=== PATIENT | female | born 1970 | race Caucasian/White ===

== ENCOUNTER → 2016-07-15 | Day surgery (SDC) | payer BC ==
[~2016-07-15] MED LIST: ALEVE220 M1 PO; B12; DOC-Q-LACE100 MG PO; ESTRACE42.5 GM VAG; ESTROGEL50 GM; IBUPROFEN600 MG PO; MYRBETRIQ25 MG PO; NEURONTIN100 MG PO; NO MEDICATIONS; NORFLEX100 M1 PO; PERCOCET5/325 PO; RANITIDINE HCL150 M1 PO; TRAMADOL HCL50 M2 PO; VITAMIN B12 INJECTIO; VOLTAREN75 MG PO
--- NOTE | ~2016-07-15 | OR ---
Unit #: [id number] #: [id number] Patient: LEATHA CLEMENTS [id number] [address] [place], [place] [address] [id number] O MR#: [id number] NAME: LEATHA CLEMENTS. ROOM: Date of Procedure: 07/15/2016 Admission Date: 07/15/2016 Surgeon: Carroll Healy M.D. : 1970 Attending Physician: Carroll Healy M.D. Primary Care Physician: Juan Mike M.D. OPERATIVE REPORT JOB NOTE: VERIFY CC AT THE END PREOPERATIVE DIAGNOSES Low back pain, radiculopathy, and degenerative lumbar disk disease. POSTOPERATIVE DIAGNOSES Low back pain, radiculopathy, and degenerative lumbar disk disease. PROCEDURE PERFORMED Lumbar epidural steroid injection with intravenous sedation under fluoroscopic guidance for needle localization. INDICATIONS FOR PROCEDURE The patient is a 46-year-old female with a several month history of back and bilateral lower extremity pains, more pain on the right and numbness on the left. This started after doing some physical therapy when she was working on her prolapsed bladder. She had no prior problems. Symptoms have not gotten better with the use of anti-inflammatories or therapy aimed at her back and legs. Workup demonstrated degenerative disk disease with loss of disc height and bulging left greater than right at L5-S1 level, mild bulge at L4-L5 level, were within normal limits. Examination is consistent with radiculitis and disc irritation causing her symptoms. Based on history, pathology, symptomatology and response, today plan is for a trial of an epidural steroid injection. DESCRIPTION OF PROCEDURE The patient was placed in a seated position. Standard monitors were applied. Then, 2 mg of Versed were given for sedation and anxiolysis, which were adequate. Vital signs remained stable. Sterile prep and drape then of the lumbar area was performed. The skin at the L5 level was localized with 1% lidocaine. An 18-gauge [employer] needle was then advanced via loss of resistance technique and fluoroscopic guidance in toward the epidural space. After confirming proper positioning with fluoroscopy and radiographic contrast, 80 mg of Depo-Medrol and 4 mL of 0.125% bupivacaine were deposited. The patient tolerated the procedure otherwise well and was discharged to the recovery room in stable condition. Dictated by... Unit #: [id number] #: [id number] Patient: CLEMENTSLEATHA M.D. LHP/av TD: 07/15/2016 13:47 JOB #: [id number] OPERATIVE REPORT Page 1 of 1 X Carroll Healy MD X PROCEDURE OPERATIVE NOTE
== END | disposition home or self-care (01) ==
LOC: CCSC 07:51
DX: M51.16 Intervertebral disc disorders with radiculopathy, lumbar region (principal); M51.17 Intervertebral disc disorders with radiculopathy, lumbosacral region; M47.27 Other spondylosis with radiculopathy, lumbosacral region; I10 Essential (primary) hypertension
CPT/HCPCS: J1040; J2250

== ENCOUNTER → 2016-10-14 | Day surgery (SDC) | payer BC ==
--- NOTE | ~2016-10-14 | OR ---
Unit #: [id number] #: [id number] Patient: LEATHA CLEMENTS [id number] [address] [place], [place] [address] [id number] O MR#: [id number] NAME: LEATHA CLEMENTS ROOM: Date of Procedure: 10/14/2016 Admission Date: 10/14/2016 Surgeon: Carroll Healy M.D. : 1970 Attending Physician: Carroll Healy M.D. Primary Care Physician: Juan Mike M.D. OPERATIVE REPORT JOB NOTE: CC: [facility] PREOPERATIVE DIAGNOSES Back pain, radiculopathy, degenerative lumbar disk disease. POSTOPERATIVE DIAGNOSES Back pain, radiculopathy, degenerative lumbar disk disease. PROCEDURE PERFORMED Lumbar epidural steroid injection with intravenous sedation and fluoroscopic guidance for needle localization. INDICATIONS FOR PROCEDURE The patient is a 46-year-old female, who has had back and bilateral lower extremity pains. She got bad following a surgery last January the [employer] surgery. Following a bladder prolapse, she had a single epidural steroid injection in July and started feel somewhat better, and then had extensive surgery in August, do a full pelvic wall repair requiring lithotomy position for multiple hours. The patient has had back and lower extremity pain since then having been fairly significant, so plan is to repeat an epidural steroid injection. DESCRIPTION OF PROCEDURE The patient was placed in a seated position. Standard monitors were applied. 2 mg of Versed were given for sedation and anxiolysis, which were adequate. Vital signs remained stable. Sterile prep and drape then of lumbar area was performed. The skin then at the L4-L5 level was localized with 1% lidocaine. An 18-gauge [employer] needle was then advanced via loss of resistance technique and fluoroscopic guidance in toward the epidural space. After confirming proper positioning with fluoroscopy and radiographic contrast, 80 mg of Depo-Medrol and 4 mL of 0.125% bupivacaine were deposited. The patient tolerated the procedure otherwise well and was discharged to recovery room in stable condition. Dictated by... Chantelle Blackburn/av TD: 10/14/2016 10:51 Unit #: [id number] #: [id number] Patient: MICHELLE CLEMENTSLIE Mi JOB #: [id number] OPERATIVE REPORT Page 1 of 1 X Carroll Healy MD X PROCEDURE OPERATIVE NOTE
== END | disposition home or self-care (01) ==
LOC: CCSC 08:08
DX: M51.16 Intervertebral disc disorders with radiculopathy, lumbar region (principal)
CPT/HCPCS: J1040; J2250

== ENCOUNTER → 2016-10-28 | Day surgery (SDC) | payer BC ==
--- NOTE | ~2016-10-28 | OR ---
Unit #: [id number] #: [id number] Patient: LEATHA CLEMENTS [id number] [address] [place], [place] [address] [id number] O MR#: [id number] NAME: LEATHA CLEMENTS. ROOM: Date of Procedure: 10/28/2016 Admission Date: 10/28/2016 Surgeon: Carroll Healy M.D. : 1970 Attending Physician: Carroll Healy M.D. Primary Care Physician: Juan Mike M.D. OPERATIVE REPORT PREOPERATIVE DIAGNOSES Degenerative lumbar disease with myelopathy, back pain, radiculopathy. POSTOPERATIVE DIAGNOSES Degenerative lumbar disease with myelopathy, back pain, radiculopathy. PROCEDURE PERFORMED Lumbar epidural steroid injection with intravenous sedation and fluoroscopic guidance for needle localization. INDICATIONS FOR PROCEDURE The patient is a 46-year-old female with back, bilateral lower extremity pain, and paresthesia, which started in January last following bladder surgery. She failed to settle with conservative treatment. Initial epidural steroid injection done back in July, which helped all of the symptoms of which she had a repeat surgery, which flare things up again. Based on her history, pathology, symptomatology, and response to treatment, plan is to repeat the injections. Repeat injection done 2 weeks ago resulted in again a flare of the pain for about a week and then settling of symptoms in her legs better than low back. Based on partial response, pathology, symptomatology, and options, we are going to proceed with a second injection today. DESCRIPTION OF PROCEDURE The patient was placed in a seated position. Standard monitors were applied. 2 mg of Versed were given for sedation and anxiolysis, which were adequate. Vital signs remained stable. Sterile prep and drape then of lumbar area was performed. The skin at the L5 level was localized with 1% lidocaine. An 18-gauge [employer] needle was then advanced via loss of resistance technique and fluoroscopic guidance in toward the epidural space. After confirming proper positioning with fluoroscopy and radiographic contrast, 80 mg of Depo-Medrol and 4 mL of 0.125% bupivacaine were deposited. The patient tolerated the procedure otherwise well and was discharged to the recovery room in stable condition. Dictated by... Carroll Healy M.D. P/modl Unit #: [id number] #: [id number] Patient: LEATHA CLEMENTS TD: 10/28/2016 13:20 JOB #: [id number] OPERATIVE REPORT Page 1 of 1 X Carroll Healy MD X PROCEDURE OPERATIVE NOTE
== END | disposition home or self-care (01) ==
LOC: CCSC 08:11
PROVIDERS: Pain Medicine Pain Medicine
PROC: 3E0S3BZ Introduction of Anesthetic Agent into Epidural Space, Percutaneous Approach (ICD-10-PCS; 2016-10-28)
PROC: 3E0S33Z Introduction of Anti-inflammatory into Epidural Space, Percutaneous Approach (ICD-10-PCS; principal; 2016-10-28 09:15)
DX: M51.06 Intervertebral disc disorders with myelopathy, lumbar region (principal); M51.16 Intervertebral disc disorders with radiculopathy, lumbar region; I10 Essential (primary) hypertension; F41.9 Anxiety disorder, unspecified
CPT/HCPCS: J1040; J2250

== ENCOUNTER → 2016-11-25 | Day surgery (SDC) | payer BC ==
--- NOTE | ~2016-11-25 | OR ---
Unit #: [id number] #: [id number] Patient: LEATHA CLEMENTS [id number] [address] [place], [place] [address] [id number] O MR#: [id number] NAME: LEATHA CLEMENTS. ROOM: Date of Procedure: 11/25/2016 Admission Date: 11/25/2016 Surgeon: Carroll Healy M.D. : 1970 Attending Physician: Carroll Healy M.D. Primary Care Physician: Juan Mike M.D. OPERATIVE REPORT PREOPERATIVE DIAGNOSES Back pain, radiculopathy, degenerative lumbar disk disease. POSTOPERATIVE DIAGNOSES Back pain, radiculopathy, degenerative lumbar disk disease. PROCEDURE PERFORMED Lumbar epidural steroid injection with intravenous sedation and fluoroscopic guidance for needle localization. INDICATIONS FOR PROCEDURE The patient is a 46-year-old female, who presented with back and bilateral lower extremity pain and paresthesia, which have worsened following initial surgery for bladder prolapse. She had further surgery, major [employer] surgery done this summer that further flared her symptoms, so decision made to give her trial of epidural steroids. Two have been done at this point over the last month and a half. They have definitely increased her symptom control that has not been fully maintained. Plan is to repeat a final injection at this point. The patient will follow up with Aimee Garcia, who works with Dr. Pelaez and Dr. Parmar, determine the need for further care or surgical treatment, if that is not the end of the issue, then we may look at medical management of her problems. DESCRIPTION OF PROCEDURE The patient was placed in the seated position. Standard monitors were applied. 2 mg of Versed were given for sedation and anxiolysis, which were adequate. Vital signs remained stable. Sterile prep and drape then of the lumbar area was performed. The skin then at the L5 level was localized with 1% lidocaine. An 18-gauge [employer] needle was then advanced via loss of resistance technique and fluoroscopic guidance in toward the epidural space. After confirming with fluoroscopy and proper needle placement, a dose 80 mg of Depo-Medrol and 4 mL of 0.125% bupivacaine were deposited. The patient tolerated the procedure otherwise well and was discharged to the recovery room in stable condition. Dictated by... Carroll Healy M.D. AMY/av TD: 11/25/2016 16:50 Unit #: [id number] #: [id number] Patient: LEATHA CLEMENTS JOB #: [id number] OPERATIVE REPORT Page 1 of 1 X Carroll Healy MD X PROCEDURE OPERATIVE NOTE
== END | disposition home or self-care (01) ==
LOC: CCSC 09:38
DX: M51.16 Intervertebral disc disorders with radiculopathy, lumbar region (principal); I10 Essential (primary) hypertension; Z79.1 Long term (current) use of non-steroidal anti-inflammatories (NSAID); Z79.891 Long term (current) use of opiate analgesic; Z79.899 Other long term (current) drug therapy
CPT/HCPCS: J1040; J2250